=== PATIENT | male | born 1950 | race Caucasian/White ===

== ENCOUNTER 2020-11-03 12:03 | Outpatient (REF) | payer MEDICARE, OTHER, SELFPAY | END 2020-11-03 12:04 | disposition home or self-care (01) | LOC: HO.BBR 12:03 | PROVIDERS: Visit Provider Family Medicine | DX: Z13.89 Encounter for screening for other disorder (principal) ==

== ENCOUNTER 2020-11-03 13:04 | Outpatient (REF) | payer SELFPAY ==
[2020-11-03 16:15] LABS: Cholesterol 148 mg/dL
[2020-11-03 16:32] LABS: SARS COV2 IgG Negative (Negative)
== END 2020-11-03 13:05 | disposition home or self-care (01) ==
LOC: HO.LNC 13:04
PROVIDERS: Visit Provider Pathology Anatomic Pathology & Clinical Pathology
DX: Z13.89 Encounter for screening for other disorder (principal)
CPT/HCPCS: 36415; 82465; 86769

== ENCOUNTER 2020-12-30 09:55 | Outpatient (REF) | payer MEDICARE, OTHER, SELFPAY ==
[2020-12-30 11:42] LABS: Iron 117 mcg/dL (45-160); Percent Iron Saturation 46 % (15-50); Total Iron Binding Capacity 253 mcg/dL (228-428); Unsaturated Iron Binding 136 ug/dL
[2020-12-30 12:03] LABS: Ferritin 35 ng/mL (20-250)
== END 2020-12-30 09:56 | disposition home or self-care (01) ==
LOC: HO.BBR 09:55
PROVIDERS: Visit Provider Family Medicine
DX: E83.110 Hereditary hemochromatosis (principal)
CPT/HCPCS: 36415; 82728; 83540

== ENCOUNTER 2021-03-20 10:04 | Outpatient (REF) | payer MEDICARE, OTHER, SELFPAY ==
[2021-03-20 11:59] LABS: Iron 68 mcg/dL (45-160); Percent Iron Saturation 29 % (15-50); Total Iron Binding Capacity 238 mcg/dL (228-428); Unsaturated Iron Binding 170 ug/dL
[2021-03-20 12:20] LABS: Ferritin 39 ng/mL (20-250)
== END 2021-03-20 10:05 | disposition home or self-care (01) ==
LOC: HO.BBR 10:04
PROVIDERS: PCP Family Medicine; Visit Provider Family Medicine
DX: E83.110 Hereditary hemochromatosis (principal)
CPT/HCPCS: 36415; 82728; 83540

== ENCOUNTER 2021-07-15 11:50 | Outpatient (REF) | payer MEDICARE, OTHER, SELFPAY | END 2021-07-15 11:51 | disposition home or self-care (01) | LOC: HO.BBR 11:50 | PROVIDERS: PCP Family Medicine; Visit Provider Family Medicine | DX: Z13.89 Encounter for screening for other disorder (principal) ==

== ENCOUNTER 2021-09-14 09:29 | Outpatient (REF) | payer MEDICARE, OTHER, SELFPAY ==
[2021-09-14 11:10] LABS: Iron 114 mcg/dL (45-160); Percent Iron Saturation 48 % (15-50); Total Iron Binding Capacity 239 mcg/dL (228-428); Unsaturated Iron Binding 125 ug/dL
[2021-09-14 11:32] LABS: Ferritin 40 ng/mL (20-250)
== END 2021-09-14 09:30 | disposition home or self-care (01) ==
LOC: HO.BBR 09:29
PROVIDERS: Visit Provider Family Medicine
DX: E83.110 Hereditary hemochromatosis (principal)
CPT/HCPCS: 36415; 82728; 83540

== ENCOUNTER 2021-11-30 10:02 | Outpatient (REF) | payer MEDICARE, OTHER, SELFPAY | END 2021-11-30 10:03 | disposition home or self-care (01) | LOC: HO.BBR 10:02 | PROVIDERS: Visit Provider Family Medicine | DX: Z13.89 Encounter for screening for other disorder (principal) ==

== ENCOUNTER 2022-01-25 10:00 | Outpatient (REF) | payer MEDICARE, OTHER, SELFPAY | END 2022-01-25 10:01 | disposition home or self-care (01) | LOC: HO.BBR 10:00 | PROVIDERS: Visit Provider Family Medicine | DX: Z13.89 Encounter for screening for other disorder (principal) ==

== ENCOUNTER 2022-05-26 08:56 | Outpatient (REF) | payer MEDICARE, OTHER, SELFPAY ==
[2022-05-26 11:30] LABS: Iron 92 mcg/dL (45-160); Percent Iron Saturation 39 % (15-50); Total Iron Binding Capacity 235 mcg/dL (228-428); Unsaturated Iron Binding 143 ug/dL
[2022-05-26 11:35] LABS: Ferritin 52 ng/mL (20-250)
== END 2022-05-26 08:57 | disposition home or self-care (01) ==
LOC: HO.BBR 08:56
PROVIDERS: Visit Provider Nurse Practitioner Family
DX: E83.110 Hereditary hemochromatosis (principal)
CPT/HCPCS: 36415; 82728; 83540

== ENCOUNTER 2022-07-28 10:58 | Outpatient (REF) | payer MEDICARE, OTHER, SELFPAY | END 2022-07-28 10:59 | disposition home or self-care (01) | LOC: HO.BBR 10:58 | PROVIDERS: Visit Provider Nurse Practitioner Family | DX: Z13.89 Encounter for screening for other disorder (principal) ==

== ENCOUNTER 2022-10-01 08:55 | Outpatient (REF) | payer MEDICARE, OTHER, SELFPAY | END 2022-10-01 08:56 | disposition home or self-care (01) | LOC: HO.BBR 08:55 | PROVIDERS: Visit Provider Nurse Practitioner Family | DX: Z13.89 Encounter for screening for other disorder (principal) ==

== ENCOUNTER 2022-12-02 08:56 | Outpatient (REF) | payer MEDICARE, OTHER, SELFPAY ==
[2022-12-02 11:35] LABS: Iron 106 mcg/dL (45-160); Percent Iron Saturation 49 % (15-50); Total Iron Binding Capacity 216 mcg/dL (228-428); Unsaturated Iron Binding 110 ug/dL
[2022-12-02 11:41] LABS: Ferritin 62 ng/mL (20-250)
== END 2022-12-02 08:57 | disposition home or self-care (01) ==
LOC: HO.BBR 08:56
PROVIDERS: Visit Provider Nurse Practitioner Family
DX: E83.110 Hereditary hemochromatosis (principal)
CPT/HCPCS: 36415; 82728; 83540

== ENCOUNTER 2023-03-16 07:49 | Outpatient (REF) | payer MEDICARE, OTHER, SELFPAY | END 2023-03-16 07:50 | disposition home or self-care (01) | LOC: HO.BBR 07:49 | PROVIDERS: Visit Provider Nurse Practitioner Family | DX: Z13.89 Encounter for screening for other disorder (principal) ==

== ENCOUNTER 2023-05-16 08:43 | Outpatient (REF) | payer MEDICARE, OTHER, SELFPAY ==
[2023-05-16 10:55] LABS: Iron 149 mcg/dL (45-160); Percent Iron Saturation 66 % (15-50); Total Iron Binding Capacity 225 mcg/dL (228-428); Unsaturated Iron Binding 76 ug/dL
[2023-05-16 11:15] LABS: Ferritin 74 ng/mL (20-250)
== END 2023-05-16 08:44 | disposition home or self-care (01) ==
LOC: HO.BBR 08:43
PROVIDERS: Visit Provider Nurse Practitioner Family
DX: E83.110 Hereditary hemochromatosis (principal)
CPT/HCPCS: 36415; 82728; 83540

== ENCOUNTER 2023-07-26 08:58 | Outpatient (REF) | payer MEDICARE, OTHER, SELFPAY | END 2023-07-26 08:59 | disposition home or self-care (01) | LOC: HO.BBR 08:58 | PROVIDERS: PCP Family Medicine; Visit Provider Family Medicine | DX: Z13.89 Encounter for screening for other disorder (principal) ==

== ENCOUNTER 2023-09-26 09:57 | Outpatient (REF) | payer MEDICARE, OTHER, SELFPAY | END 2023-09-26 09:58 | disposition home or self-care (01) | LOC: HO.BBR 09:57 | PROVIDERS: PCP Family Medicine; Visit Provider Family Medicine | DX: Z13.89 Encounter for screening for other disorder (principal) ==

== ENCOUNTER 2023-11-29 14:42 | Outpatient (REF) | payer MEDICARE, OTHER, SELFPAY ==
[2023-11-29 17:08] LABS: Iron 125 mcg/dL (45-160); Percent Iron Saturation 59 % (15-50); Total Iron Binding Capacity 212 mcg/dL (228-428); Unsaturated Iron Binding 87 ug/dL
[2023-11-29 17:21] LABS: Ferritin 60 ng/mL (20-250)
== END 2023-11-29 14:43 | disposition home or self-care (01) ==
LOC: HO.BBR 14:42
PROVIDERS: PCP Family Medicine; Visit Provider Family Medicine
DX: E83.110 Hereditary hemochromatosis (principal)
CPT/HCPCS: 36415; 82728; 83540

== ENCOUNTER 2024-01-31 14:50 | Outpatient (REF) | payer MEDICARE, OTHER, SELFPAY | END 2024-01-31 14:51 | disposition home or self-care (01) | LOC: HO.BBR 14:50 | PROVIDERS: PCP Family Medicine; Visit Provider Family Medicine | DX: Z13.89 Encounter for screening for other disorder (principal) ==

== ENCOUNTER 2024-04-04 09:12 | Outpatient (REF) | payer MEDICARE, OTHER, SELFPAY | END 2024-04-04 09:13 | disposition home or self-care (01) | LOC: HO.BBR 09:12 | PROVIDERS: PCP Family Medicine; Visit Provider Family Medicine | DX: Z13.89 Encounter for screening for other disorder (principal) ==

== ENCOUNTER 2024-07-04 11:00 | Outpatient (REF) | payer MEDICARE, OTHER, SELFPAY ==
[2024-07-04 12:35] LABS: Iron 162 mcg/dL (45-160); Percent Iron Saturation 75 % (15-50); Total Iron Binding Capacity 217 mcg/dL (228-428); Unsaturated Iron Binding 55 ug/dL
[2024-07-04 12:46] LABS: Ferritin 90 ng/mL (20-250)
== END 2024-07-04 11:01 | disposition home or self-care (01) ==
LOC: HO.BBR 11:00
PROVIDERS: PCP Family Medicine; Visit Provider Family Medicine
DX: E83.110 Hereditary hemochromatosis (principal)
CPT/HCPCS: 36415; 82728; 83540

== ENCOUNTER 2024-08-29 10:58 | Outpatient (REF) | payer MEDICARE, OTHER, SELFPAY | END 2024-08-29 10:59 | disposition home or self-care (01) | LOC: HO.BBR 10:58 | PROVIDERS: PCP Family Medicine; Visit Provider Family Medicine | DX: Z13.89 Encounter for screening for other disorder (principal) ==

== ENCOUNTER 2024-10-29 10:58 | Outpatient (REF) | payer MEDICARE, OTHER, SELFPAY | END 2024-10-29 10:59 | disposition home or self-care (01) | LOC: HO.BBR 10:58 | PROVIDERS: PCP Family Medicine; Visit Provider Family Medicine | DX: Z13.89 Encounter for screening for other disorder (principal) ==

== ENCOUNTER 2024-12-27 10:42 | Outpatient (REF) | payer MEDICARE, OTHER, SELFPAY | END 2024-12-27 10:43 | disposition home or self-care (01) | LOC: HO.BBR 10:42 | PROVIDERS: PCP Family Medicine; Visit Provider Family Medicine | DX: Z13.89 Encounter for screening for other disorder (principal) ==

== ENCOUNTER 2025-02-27 08:57 | Outpatient (REF) | payer MEDICARE, OTHER, SELFPAY | END 2025-02-27 08:58 | disposition home or self-care (01) | LOC: HO.BBR 08:57 | PROVIDERS: PCP Family Medicine; Visit Provider Family Medicine | DX: Z13.89 Encounter for screening for other disorder (principal) ==

== ENCOUNTER 2025-04-29 10:02 | Outpatient (REF) | payer MEDICARE, OTHER, SELFPAY | END 2025-04-29 10:03 | disposition home or self-care (01) | LOC: HO.BBR 10:02 | PROVIDERS: PCP Family Medicine; Visit Provider Family Medicine | DX: Z13.89 Encounter for screening for other disorder (principal) ==

== ENCOUNTER 2025-07-03 10:02 | Outpatient (REF) | payer MEDICARE, OTHER, SELFPAY ==
--- OUTSIDE RECORDS SUMMARY | 2025-07-03 12:11 | XMS_ITS | Patient Health Record ---
Author Organization [facility] Address [address] [place] [address] Care Team Providers Care Gold Leaf Roller Name Role Phone Zachariah Khan Primary Care Provider David Barbosa [phone] Allergies Allergen (clinical drug ingredient) Drug/Non Drug Allergy documented on EMR Reaction Allergy Type Onset Date Status penicillamine Penicillamine Unknown Drug Allergy Active Reason For Referral No Information Plan Of Treatment No Information Insurance Providers Payer Name Payer Address Payer Phone Subscriber Number Group Number Insured Name Patient Relationship to Insured Coverage Start Date Coverage End Date [facility] [address] [place] [phone] [id number] ROSARIO RO Self - patient is the insured Medical (General) History Medical History History ICD Code colonoscopy 04-14-2007 colon polyps gerd hypertension Surgical History Surgery Date(Month/Year) hernia suergery deviated septum
== END 2025-07-03 10:03 | disposition home or self-care (01) ==
LOC: HO.BBR 10:02
PROVIDERS: PCP Family Medicine; Visit Provider Family Medicine
DX: Z13.89 Encounter for screening for other disorder (principal)